=== PATIENT | female | born 1940 | race Caucasian/White ===

== ENCOUNTER → 2016-07-05 | Day surgery (SDC) | payer MEDICARE ==
[~2016-07-05] MED LIST: BUPIVACAINE HCL PF 0.75% 30 ML VIAL ONE; CALC-179 PO; CIPR500T2 PO; DICL75 PO; HYDR-2951 PO; LACTATED RINGER'S 1000 ML INJ 1,000 ML ONE; LIDOCAINE 1.5%/EPINEPHrine 1:200,000 PF SOLN 30 ML AMP ONE; MIDAZOLAM HCL 2 MG/2 ML VIAL ONE; ONDANSETRON HCL 4 MG/2 ML VIAL IV PUSH ONE; PRAV20TA67 PO; PROPOFOL 200 MG/20 ML AMP IV ONE; SODIUM CHLORIDE 0.9% INJ 100 ML IV ONE; TAB-TAB PO; TOFR25TA PO; VANCOMYCIN 500 MG VIAL ONE; ziac PO
--- NOTE | 2016-07-05 17:04 | TN ---
cc: DIANE MAO MD DATE OF SURGERY: 07/05/2016. PREOPERATIVE DIAGNOSIS: Right shoulder AC joint arthritis. POSTOPERATIVE DIAGNOSIS: Right shoulder AC joint arthritis. OPERATIVE PROCEDURE PERFORMED: Right shoulder AC joint arthroplasty with excision of the distal clavicle. SURGEON: Diane Mao MD. DESCRIPTION OF THE PROCEDURE IN DETAIL: Informed consent was obtained. The patient was taken to the operating room and placed in the supine position on the operating table. She was administered a general anesthesia by the anesthesiologist and she was then placed in the beach-chair position. The right shoulder had a sterile U drape applied. The shoulder was then prepped with Betadine soap followed by Betadine paint. Draping commenced with sterile towels about the shoulder. Split sheet. A stockinette was applied over the forearm and hand and an extremity drape was applied. At that time, a time-out was held and confirmed. The patient had been given vancomycin 500 mg prior to the initiation of the operative procedure. At that time, a transverse incision was made over the AC joint and the skin and subcutaneous tissue was divided. Bleeders were coagulated utilizing a Bovie. Dissection was carried down to the AC joint. There was a very prominent osteophyte on the medial aspect of the acromion on the dorsal side. This was debrided with a rongeur. A longitudinal capsulotomy was performed at the AC joint and the periosteum was elevated anteriorly and posteriorly. Utilizing an oscillating saw, the distal one-quarter inch of clavicle was removed. This was then grasped with a rasp. The undersurface of the acromion was debrided with a rongeur and the coracoacromial ligament was released. At that time, the wound was irrigated and closed with #0 Vicryl and #2-0 Vicryl in the deep tissues, 3-0 plain in the superficial, subcutaneous tissue and 4-0 nylon interrupted Aldara stitches in the skin. Steri-Strips, 4x4s, ABD and tape were applied to the patient's shoulder. She tolerated the procedure well and was then taken to the recovery room in stable condition at the completion of the procedure. Sponge counts, instrument counts and needle counts were correct. The estimated blood loss was less than 10 cc. MD ALFRED Cruz/HELEN /4:38 PM 4:50 PM
== END | disposition home or self-care (01) ==
LOC: ESDC 12:26
PROVIDERS: ATTEND Orthopaedic Surgery
DX: M19.011 Primary osteoarthritis, right shoulder (principal)
CPT/HCPCS: 00450; 01991; 23120; 64417; J2250; J2405; J3370; J7120